=== PATIENT | male | born 1970 | race Caucasian/White ===

== ENCOUNTER 2018-01-17 10:04 | Inpatient (IN) | payer BC ==
[~2018-01-17] VITALS: Ht 182.9 cm; Wt 73.3 kg
[~2018-01-17 10:04] MED LIST: NO HOME MEDS
[2018-01-17 10:48] LABS: BASOPHILS % (AUTO) 0.3 % (0-1); EOSINOPHILS # (AUTO) 0.1 X10'3 (0-0.9); EOSINOPHILS % (AUTO) 1.2 % (0-6); HEMATOCRIT 44.1 % (42.0-52.0); HEMOGLOBIN 15.7 g/dl (14.0-17.9); LYMPHOCYTES # (AUTO) 1.2 X10'3 (1.1-4.8); LYMPHOCYTES % (AUTO) 14.3 % (21-51); MEAN CORPUSCULAR HGB CONC 35.6 % (33.0-36.5); MEAN CORPUSCULAR VOLUME 101.3 FL (78-98); MEAN PLATELET VOLUME 7.7 FL (7.4-10.4); MONOCYTES % (AUTO) 12.1 % (2-12); NEUTROPHILS # (AUTO) 5.8 X10'3 (1.8-7.7); NEUTROPHILS % (AUTO) 72.1 % (42-75); PLATELET COUNT 176 X10'3 (140-440); RED BLOOD COUNT 4.36 X10'6 (4.70-6.10); RED CELL DISTRIBUTION WIDTH 11.9 % (11.5-14.5); WHITE BLOOD COUNT 8.1 X10'3 (4.5-11.0)
[2018-01-17 11:03] LABS: ALANINE AMINOTRANSFERASE 47 U/L (12-78); ALBUMIN 3.7 G/DL (3.4-5.0); ALBUMIN/GLOBULIN RATIO 0.9 (1.1-1.5); ALKALINE PHOSPHATASE 100 IU/L (46-116); ANION GAP 9 (8-16); ASPARTATE AMINO TRANSFERASE 27 U/L (10-37); BILIRUBIN,TOTAL 1.1 MG/DL (0.1-1.0); BLOOD UREA NITROGEN 13 MG/DL (7-18); BUN/CREATININE RATIO 18.8 (5.4-32.0); CALCIUM 10.2 MG/DL (8.5-10.1); CHLORIDE 95 MMOL/L (99-107); CREATININE 0.69 MG/DL (0.60-1.10); GLUCOSE 381 MG/DL (70-104); POTASSIUM 4.5 MMOL/L (3.5-5.1); SODIUM 134 MMOL/L (135-145); TOTAL CARBON DIOXIDE 30.1 MMOL/L (24-32); TOTAL PROTEIN 7.7 G/DL (6.4-8.2); eGFR > 90 ML/MIN
[2018-01-17] MEDS ORDERED: vancomycin/NS 1 GM ADD-VANTAGE 250 ML IV ONE (13:05)
[2018-01-17] MEDS ORDERED: piperacillin/tazo 3.375gm/50ml 50 ML IV ONE (13:05)
[2018-01-17] MEDS ORDERED: potassium Cl 20 mEq SR tablet PO PRN ×2 (13:45)
[2018-01-17] MEDS: sodium chloride 0.45% 1,000 ML IV SCH ×2 (13:45→22:07)
[2018-01-17] MEDS ORDERED: LORazepam 1 MG tablet PO PRN (13:45)
[2018-01-17] MEDS ORDERED: ondansetron/PF 4mg/2ml inj IV PRN (13:45)
[2018-01-17] MEDS ORDERED: magnesium 4gm in 100ml NS 100 ML IV PRN (13:45)
[2018-01-17] MEDS ORDERED: bisacodyl 10mg suppository rectal RC PRN (13:45)
[2018-01-17] MEDS ORDERED: magnesium 2GM in 50ml NS 50 ML IV PRN (13:45)
[2018-01-17] MEDS ORDERED: LORazepam 2 mg/ml vial IV PRN (13:45)
[2018-01-17] MEDS ORDERED: morphine 4 MG/ML inj SYRINge IV PRN ×2 (13:45)
[2018-01-17] MEDS ORDERED: potassium Cl 40MEQ/NS 500ml 500 ML IV PRN ×2 (13:45)
[2018-01-17] MEDS ORDERED: HYDROcodone/acetaminophen 5mg/325mg tablet PO PRN (13:45)
[2018-01-17] MEDS ORDERED: magnesium Cl slow-release 64mg tablet PO PRN (13:45)
[2018-01-17] MEDS ORDERED: dextrose 50%-water 50ml dispensing syringe IV PRN ×3 (13:45→13:55)
[2018-01-17] MEDS ORDERED: acetaminophen 325mg tablet PO PRN (13:45)
[2018-01-17] MEDS ORDERED: mag hydrox/Alum hydrox/simeth 30ml oral suspension PO PRN (13:45)
[2018-01-17] MEDS ORDERED: magnesium hydroxide 30ml (MOM) UD suspension PO PRN (13:45)
[2018-01-17] MEDS ORDERED: MESSAGE TO PHARMACY PO ONE (13:55)
[2018-01-17] MEDS ORDERED: glucagon, human recombinant 1mg kit SUBCUT PRN (13:55)
[2018-01-17] MEDS ORDERED: dextrose ORAL solution 15 GM/59 ML bottle PO PRN ×2 (13:55)
[2018-01-17] MEDS: folic acid inj. 2 MG, thiamine inj. 100 MG, MVI, adult No.4 with vit. K 10 ML in dextro... IV SCH ×4 (18:00)
[2018-01-17 18:09] VITALS: BP 160/87
[2018-01-17] MEDS: insulin Lispro (HumaLOG) vial - multi-dose SQ SCH ×2 (19:27→22:36)
[2018-01-17] MEDS ORDERED: vancomycin/NS 1 GM ADD-VANTAGE 250 ML IV SCH (20:00)
[2018-01-17] MEDS: docusate sod 100mg capsule PO SCH (20:00)
[2018-01-17] MEDS: insulin glargine (Lantus) pen - multi-dose SQ SCH (21:00)
[2018-01-17 22:00] VITALS: BP 149/83
[2018-01-17] MEDS: piperacillin/tazo 4.5gm/100ml 100 ML IV SCH (22:06)
[2018-01-17] MEDS: HYDROcodone/acetaminophen 10/325mg tab PO PRN (22:44)
[2018-01-17] MEDS: vancomycin/NS 1 GM ADD-VANTAGE 250 ML IV SCH (23:39)
[2018-01-18] VITALS (8 sets, daily range): BP systolic 128–152; BP diastolic 74–98
[2018-01-18] MEDS: HYDROcodone/acetaminophen 10/325mg tab PO PRN ×4 (05:08→23:53)
[2018-01-18 05:48] LABS: BASOPHILS % (AUTO) 0.2 % (0-1); EOSINOPHILS # (AUTO) 0.1 X10'3 (0-0.9); HEMATOCRIT 41.1 % (42.0-52.0); HEMOGLOBIN 14.6 g/dl (14.0-17.9); LYMPHOCYTES # (AUTO) 1.3 X10'3 (1.1-4.8); LYMPHOCYTES % (AUTO) 18.2 % (21-51); MEAN CORPUSCULAR HEMOGLOBIN 36.4 PG (27.0-31.0); MEAN CORPUSCULAR HGB CONC 35.7 % (33.0-36.5); MEAN CORPUSCULAR VOLUME 102.2 FL (78-98); MEAN PLATELET VOLUME 7.6 FL (7.4-10.4); MONOCYTES # (AUTO) 0.9 X10'3 (0-0.9); NEUTROPHILS # (AUTO) 4.8 X10'3 (1.8-7.7); NEUTROPHILS % (AUTO) 66.6 % (42-75); PLATELET COUNT 161 X10'3 (140-440); RED BLOOD COUNT 4.02 X10'6 (4.70-6.10); RED CELL DISTRIBUTION WIDTH 11.8 % (11.5-14.5); WHITE BLOOD COUNT 7.3 X10'3 (4.5-11.0)
[2018-01-18] MEDS: piperacillin/tazo 4.5gm/100ml 100 ML IV SCH ×2 (05:56→09:26)
[2018-01-18 06:13] LABS: ALANINE AMINOTRANSFERASE 38 U/L (12-78); ALBUMIN 3.1 G/DL (3.4-5.0); ALBUMIN/GLOBULIN RATIO 0.9 (1.1-1.5); ALKALINE PHOSPHATASE 77 IU/L (46-116); ANION GAP 4 (8-16); ASPARTATE AMINO TRANSFERASE 20 U/L (10-37); BILIRUBIN,TOTAL 1.1 MG/DL (0.1-1.0); BLOOD UREA NITROGEN 13 MG/DL (7-18); BUN/CREATININE RATIO 18.3 (5.4-32.0); CALCIUM 8.8 MG/DL (8.5-10.1); CHLORIDE 99 MMOL/L (99-107); CREATININE 0.71 MG/DL (0.60-1.10); GLUCOSE 213 MG/DL (70-104); MAGNESIUM 1.9 MG/DL (1.5-2.4); POTASSIUM 4.2 MMOL/L (3.5-5.1); SODIUM 137 MMOL/L (135-145); TOTAL CARBON DIOXIDE 33.7 MMOL/L (24-32); TOTAL PROTEIN 6.7 G/DL (6.4-8.2); eGFR > 90 ML/MIN
[2018-01-18] MEDS: vancomycin/NS 1 GM ADD-VANTAGE 250 ML IV SCH (07:41)
[2018-01-18] MEDS ORDERED: LIDOcaine 1% 30ml preserv. free vial ONE (07:42)
[2018-01-18] MEDS ORDERED: BUPIVAcaine/PF 2.5 mg/ml (0.25%) 30ml vial ONE (07:43)
[2018-01-18] MEDS ORDERED: sevoflurane 250ml liquid IH ONE (07:55)
[2018-01-18] MEDS ORDERED: fentaNYL/PF 50MCG/1 ML 2ML syringe ONE (08:05)
[2018-01-18] MEDS ORDERED: LIDOcaine 1%/PF (10mg/ml) 5ml vial ONE (08:05)
[2018-01-18] MEDS ORDERED: midazolam 2 mg/2 ml injection ONE (08:05)
[2018-01-18] MEDS ORDERED: ringers solution, lacted 1,000 ML IV SCH (08:32)
[2018-01-18] MEDS ORDERED: morphine 4 MG/ML inj SYRINge IV PRN ×2 (08:35)
[2018-01-18] MEDS ORDERED: ondansetron/PF 4mg/2ml inj IV PRN (08:35)
[2018-01-18] MEDS ORDERED: proCHLORperazine 10 MG/2 ml inj IV PRN (08:35)
[2018-01-18] MEDS ORDERED: meperidine/PF 50mg/ml syringe IV PRN ×3 (08:35)
[2018-01-18] MEDS: K and/or MAG REPLACEMENT MC SCH (09:26)
[2018-01-18] MEDS: enoxaparin 40mg/0.4ml syringe SUBCUT SCH (09:27)
[2018-01-18] MEDS: docusate sod 100mg capsule PO SCH ×2 (09:27→19:31)
[2018-01-18] MEDS: folic acid inj. 2 MG, thiamine inj. 100 MG, MVI, adult No.4 with vit. K 10 ML in dextro... IV SCH ×4 (10:52)
[2018-01-18] MEDS ORDERED: VANCOMYCIN LEVEL IV ONE (13:30)
[2018-01-18] MEDS: levoFLOXACIN-Levaquin 750MG/D5 150 ML IV SCH (14:16)
[2018-01-18] MEDS: insulin Lispro (HumaLOG) vial - multi-dose SQ SCH ×2 (14:22→19:31)
[2018-01-18] MEDS ORDERED: metroNIDAZOLE-Flagyl 500mg/NS 100 ML IV SCH (16:00)
[2018-01-18] MEDS: vancomycin inj 1,250 MG in normal saline 250ml IV soln 250 ML IV SCH ×2 (16:41→21:20)
[2018-01-18] MEDS: sodium chloride 0.45% 1,000 ML IV SCH (18:35)
[2018-01-18] MEDS: metroNIDAZOLE-Flagyl 500mg/NS 100 ML IV SCH (18:37)
[2018-01-18] MEDS: lactobacillus rhamnosus 10,000 MMU CELLS/CAPSULE PO SCH (19:31)
[2018-01-18] MEDS: insulin glargine (Lantus) pen - multi-dose SQ SCH (21:17)
[2018-01-19 02:00] VITALS: BP 134/78
[2018-01-19] MEDS: metroNIDAZOLE-Flagyl 500mg/NS 100 ML IV SCH ×3 (02:18→18:47)
[2018-01-19 06:00] VITALS: BP 144/83
[2018-01-19] MEDS: vancomycin inj 1,250 MG in normal saline 250ml IV soln 250 ML IV SCH (06:05)
[2018-01-19 06:30] LABS: ALANINE AMINOTRANSFERASE 37 U/L (12-78); ALBUMIN 2.9 G/DL (3.4-5.0); ALBUMIN/GLOBULIN RATIO 0.9 (1.1-1.5); ALKALINE PHOSPHATASE 77 IU/L (46-116); ANION GAP 9 (8-16); ASPARTATE AMINO TRANSFERASE 23 U/L (10-37); BILIRUBIN,TOTAL 0.8 MG/DL (0.1-1.0); BLOOD UREA NITROGEN 8 MG/DL (7-18); BUN/CREATININE RATIO 14.5 (5.4-32.0); CALCIUM 8.9 MG/DL (8.5-10.1); CHLORIDE 101 MMOL/L (99-107); CREATININE 0.55 MG/DL (0.60-1.10); GLUCOSE 132 MG/DL (70-104); POTASSIUM 3.9 MMOL/L (3.5-5.1); SODIUM 139 MMOL/L (135-145); TOTAL CARBON DIOXIDE 29.2 MMOL/L (24-32); TOTAL PROTEIN 6.2 G/DL (6.4-8.2); eGFR > 90 ML/MIN
[2018-01-19] MEDS: docusate sod 100mg capsule PO SCH ×2 (07:24→20:23)
[2018-01-19] MEDS: lactobacillus rhamnosus 10,000 MMU CELLS/CAPSULE PO SCH ×2 (07:24→20:24)
[2018-01-19] MEDS: enoxaparin 40mg/0.4ml syringe SUBCUT SCH (08:00)
[2018-01-19] MEDS: K and/or MAG REPLACEMENT MC SCH (08:00)
[2018-01-19] MEDS: levoFLOXACIN-Levaquin 750MG/D5 150 ML IV SCH (09:04)
[2018-01-19] MEDS: multivitamins, therapeutics tablet PO SCH (11:31)
[2018-01-19] MEDS: thiamine 100mg tablet PO SCH (11:31)
[2018-01-19] MEDS: folic acid 1mg tablet PO SCH (11:32)
[2018-01-19] MEDS ORDERED: VANCOMYCIN LEVEL IV ONE (13:30)
[2018-01-19] MEDS: insulin Lispro (HumaLOG) vial - multi-dose SQ SCH ×2 (13:51→18:51)
[2018-01-19 18:22] VITALS: BP 147/79
[2018-01-19] MEDS: linezolid 600mg/300ml PREMIX 300 ML IV SCH (20:23)
[2018-01-19] MEDS: insulin glargine (Lantus) pen - multi-dose SQ SCH (21:31)
[2018-01-19 22:00] VITALS: BP 130/88
[2018-01-20] MEDS: metroNIDAZOLE-Flagyl 500mg/NS 100 ML IV SCH (02:45)
[2018-01-20 05:40] LABS: ALANINE AMINOTRANSFERASE 43 U/L (12-78); ALBUMIN 3.1 G/DL (3.4-5.0); ALBUMIN/GLOBULIN RATIO 0.9 (1.1-1.5); ALKALINE PHOSPHATASE 80 IU/L (46-116); ANION GAP 8 (8-16); ASPARTATE AMINO TRANSFERASE 28 U/L (10-37); BILIRUBIN,TOTAL 0.7 MG/DL (0.1-1.0); BLOOD UREA NITROGEN 10 MG/DL (7-18); BUN/CREATININE RATIO 14.7 (5.4-32.0); CALCIUM 9.1 MG/DL (8.5-10.1); CHLORIDE 101 MMOL/L (99-107); CREATININE 0.68 MG/DL (0.60-1.10); GLUCOSE 173 MG/DL (70-104); MAGNESIUM 1.8 MG/DL (1.5-2.4); POTASSIUM 3.8 MMOL/L (3.5-5.1); SODIUM 139 MMOL/L (135-145); TOTAL CARBON DIOXIDE 30.3 MMOL/L (24-32); TOTAL PROTEIN 6.7 G/DL (6.4-8.2); eGFR > 90 ML/MIN
[2018-01-20] MEDS: HYDROcodone/acetaminophen 10/325mg tab PO PRN (06:43)
[2018-01-20] MEDS: K and/or MAG REPLACEMENT MC SCH (08:00)
[2018-01-20] MEDS: linezolid 600mg/300ml PREMIX 300 ML IV SCH (08:00)
[2018-01-20] MEDS: lactobacillus rhamnosus 10,000 MMU CELLS/CAPSULE PO SCH (08:18)
[2018-01-20] MEDS: levoFLOXACIN-Levaquin 750MG/D5 150 ML IV SCH (08:18)
[2018-01-20] MEDS: folic acid 1mg tablet PO SCH (08:18)
[2018-01-20] MEDS: enoxaparin 40mg/0.4ml syringe SUBCUT SCH (08:18)
[2018-01-20] MEDS: thiamine 100mg tablet PO SCH (08:18)
[2018-01-20] MEDS: multivitamins, therapeutics tablet PO SCH (08:18)
[2018-01-20] MEDS: docusate sod 100mg capsule PO SCH (08:19)
[2018-01-20] MEDS: insulin Lispro (HumaLOG) vial - multi-dose SQ SCH (09:08)
[2018-01-20] MEDS ORDERED: VALS40TA10 PO (12:08)
[2018-01-20] MEDS ORDERED: LANTUS SQ (12:08)
[2018-01-20] MEDS ORDERED: COL100C PO (12:08)
[2018-01-20] MEDS ORDERED: FOLI1TAB16 PO (12:08)
[2018-01-20] MEDS ORDERED: THI100T PO (12:08)
[2018-01-20] MEDS ORDERED: LEVO500T2 PO (12:08)
[2018-01-20] MEDS ORDERED: METR500T4 PO (12:08)
[2018-01-20] MEDS ORDERED: HYDR-569 PO (12:08)
[2018-01-20] MEDS ORDERED: INSU100V11 SQ (12:08)
== END 2018-01-20 13:05 | disposition home or self-care (01) | DRG 617 ==
LOC: ER 10:05 → ED HOLD 13:01 → EDBEDREQ 17:23 → ORTHO 4S 18:12
PROVIDERS: ADMIT Internal Medicine; ATTEND Internal Medicine
PROC: 0Y6M0ZF Detachment at Right Foot, Partial 5th Ray, Open Approach (ICD-10-PCS; principal; 2018-01-18 07:52)
DX: E11.69 Type 2 diabetes mellitus with other specified complication (principal); L03.115 Cellulitis of right lower limb; E11.65 Type 2 diabetes mellitus with hyperglycemia; M86.8X7 Other osteomyelitis, ankle and foot; E11.42 Type 2 diabetes mellitus with diabetic polyneuropathy; E11.621 Type 2 diabetes mellitus with foot ulcer; F10.20 Alcohol dependence, uncomplicated; E11.628 Type 2 diabetes mellitus with other skin complications; L97.519 Non-pressure chronic ulcer of other part of right foot with unspecified severity; B95.61 Methicillin susceptible Staphylococcus aureus infection as the cause of diseases classified elsewhere; I10 Essential (primary) hypertension; Z91.19 Patient's noncompliance with other medical treatment and regimen; Z86.14 Personal history of Methicillin resistant Staphylococcus aureus infection; Z83.3 Family history of diabetes mellitus; Z80.9 Family history of malignant neoplasm, unspecified
CPT/HCPCS: 36415; 73630; 80053; 80202; 82948; 83036; 83735; 85025; 85651; 87040; 87070; 87077; 87185; 87186; 93005; 97116; 97161; 99285; A6222; A6223; A6255; A6446; A6449; A7000; J1650; J1815; J1956; J2001; J2020; J2250; J2543; J3010; J3370; J3411; J3490; J7030; J7060; J7120